=== PATIENT | female | born 1975 | race Caucasian/White ===

== ENCOUNTER 2021-01-15 11:21 | Outpatient (CLI) | payer OTHER | END 2021-01-15 11:28 | disposition home or self-care (01) | LOC: SONOGRAMA 11:21 | PROVIDERS: ATTEND Pathology Anatomic Pathology & Clinical Pathology | DX: D34 Benign neoplasm of thyroid gland (principal); E04.2 Nontoxic multinodular goiter; E07.89 Other specified disorders of thyroid ==